=== PATIENT | male | born 1990 | race Native Hawaiian/Other Pacific Islander ===

== ENCOUNTER 2022-11-23 20:12 | Emergency (ER) | payer OTHER ==
--- NOTE | 2022-11-23 20:55 | NUR ---
CALLED TO TRIAGE NO ANSWER
--- NOTE | 2022-11-23 21:30 | NUR ---
CALLED TO TRIAGE FROM LOBBY AND OUTSIDE, NO ANSWER. PT LWBS
== END 2022-11-23 20:55 | disposition left against medical advice (07) ==
LOC: MED 20:12
DX: Z53.21 Procedure and treatment not carried out due to patient leaving prior to being seen by health care provider (principal)